=== PATIENT | male | born 1935 | race Caucasian/White ===

== ENCOUNTER 2025-01-31 15:21 | Emergency (ER) | payer OTHER, SELFPAY ==
[2025-01-31 15:29] VITALS: BP 135/75; PULSE 92; RESP 15; TEMP 36.8; O2SAT 97
--- NOTE | 2025-01-31 15:29 | EDNOTE_ITS ---
<Statement entered by Paulina Farris MD - 01/31/25 19:04> As co-signing physician, I was present and available for consult prn. I concur with the plan and care as documented by the midlevel provider. ED General RME/HPI General Chief complaint: Skin/Abscess/Foreign Body Stated complaint: G-TUBE INFECTION Time Seen by Provider: 01/31/25 15:22 Arrival date/time: 01/31/25 15:21 RME / HPI RME / HPI narrative: 89-year-old male patient with significant history of CVA with left-sided weakness was brought in for evaluation regard concern with G-tube infection. Apparently patient family is concerned because the insertion site is slightly red, no fever noted patient is not having any pain no vomiting noted no drainage noted. Related Data Home Medications ?Medication ?Instructions ?Recorded ?Confirmed amlodipine 10 mg tablet (Norvasc) 10 mg feeding tube Q DAY 01/10/19 07/21/21 simvastatin 20 mg tablet 20 mg feeding tube QPM 01/1007/21/21 modafinil 200 mg tablet 200 mg feeding tube QAM 01/3007/21/21 omeprazole 20 mg capsule,delayed 20 mg feeding tube DA JUDIT 02/15/19 07/21/21 release cholecalciferol (vitamin D3) 25 1,000 unit feeding tub e BID 03/23/19 07/21/21 mcg (1,000 unit) tablet cyanocobalamin (vitamin B-12) 100 100 mcg feeding tube BID 03/23/19 07/21/21 mcg tablet acetaminophen 160 mg/5 mL (5 mL) 320 mg feeding tube T ID PRN Pain 02/03/21 07/21/21 oral solution gabapentin 100 mg capsule 100 mg feeding tube QID 07/0307/21/21 Previous Rx's ?Medication ?Instructions ?Recorded ondansetron HCl 4 mg tablet 4 mg PO Q8H PRN nausea and 07/21/21 (Zofran) vomiting #20 tabs ondansetron 4 mg disintegrating 4 mg PO Q6H PRN nausea and 01/28/23 tablet vomiting #30 tabs cephalexin 250 mg/5 mL oral 500 mg (10 mL) PO TID 7 da ys #210 01/31/25 suspension mL Allergies Allergy/AdvReac Type Severity Reaction Status Date / Time No Known Allergies Allergy Verified 01/31/25 16:24 Review of Systems Review of Systems Narrative Review of Systems: Review of system reviewed and within normal limits except mentioned in HPI ED Exam Narrative Physical exam: VITAL SIGNS: Reviewed. GENERAL APPEARANCE: Alert and interactive, follows commands, no acute distress, HEAD AND FACE: Non-traumatic. ENT: PERRL, pink conjunctivitis, eyelid no trauma, Mucous membrane moist. NECK: Supple, nontender, no nuchal rigidity. CHEST: No tenderness, no crepitus, no paradoxical movement, no retractions. LUNGS: Clear, well ventilated, symmetric, no rales, no wheezing, no ronchi, no stridor, good breath sounds bilaterally. HEART: Regular rate, regular rhythm, no murmur, no gallops. ABDOMEN: Soft, positive bowel sounds, nondistended, no guarding, nontender, no rebound, no masses, G-tube intact, slightly red on the insertion site, no drainage noted nontender nonfluctuant RECTAL: Deferred. GENITAL: Deferred. NEUROLOGICAL: Gross motor function intact sensory function intact on the right upper and lower extremity, weakness noted in the left upper and lower extremity, MUSCULOSKELETAL: low back nontender, full range of motion. EXTREMITIES: Nontender, full range of motion right upper and lower extremity SKIN: Color pink, dry, no rash, no lacerations, no abrasions, no contusions. LYMPHATICS: Deferred. Course Quality Measures none Orders Category Date Time Status KUB [XR abdomen 1V] Stat Exams 01/31/25 17:01 Completed CBC [CBC] Stat Lab 01/31/25 16:45 Completed CMP [Comprehensive Metabolic Panel] Stat Lab 01/31/25 17:30 Completed Vital Signs Vital signs: Vital Signs Temperature 98.2 F 01/31/25 15:29 Pulse Rate 92 01/31/25 15:29 Respiratory Rate 15 01/31/25 15:29 Blood Pressure 135/75 H 01/31/25 15:29 Pulse Oximetry (%) 97 01/31/25 15:29 Oxygen Delivery Method Room Air 01/31/25 15:29 Discharge Plan Plan Patient Disposition: HOME (Self Care) Discharge Disposition comment: stable Prescriptions/Referrals Prescriptions/Med Rec: New cephalexin 250 mg/5 mL suspension for reconstitution 500 mg PO TID 7 Days Qty: 210 0RF No Action amlodipine [Norvasc] 10 mg Tablet 10 mg feeding tube QDAY simvastatin 20 mg Tablet 20 mg feeding tube QPM modafinil 200 mg Tablet 200 mg feeding tube QAM omeprazole 20 mg Capsule,Delayed Release(Dr/Ec) 20 mg feeding tube DAILY cyanocobalamin (vitamin B-12) 100 mcg Tablet 100 mcg feeding tube BID cholecalciferol (vitamin D3) 1,000 unit Tablet 1,000 unit feeding tube BID acetaminophen 160 mg/5 mL (5 mL) solution 320 mg feeding tube TID PRN (Reason: Pain) gabapentin 100 mg Capsule 100 mg feeding tube QID ondansetron HCl [Zofran] 4 mg tablet 4 mg PO Q8H PRN (Reason: nausea and vomiting) Qty: 20 0RF ondansetron 4 mg tablet,disintegrating 4 mg PO Q6H PRN (Reason: nausea and vomiting) Qty: 30 1RF Referrals: Hemalatha Echevarria, [employer] [Primary Care Provider] - In 1 week Problem List Clinical Impression: G-tube site cellulitis Patient/Caregiver Discharge Instructions Discharge Activity: activity as tolerated Education Materials: ED Cellulitis Additional Instructions: Thank you for the opportunity for serving you today. You are stable for discharged . You are advised to: Follow-up with your PCP in 1 to 2 days Return to ED for worsening of symptoms Increase oral fluids Take medication as prescribed Okay to use the new G-tube Print Language: Irish Stand Alone Forms: [facility] [employer] Patient Portal Info Letter MDM Narrative MDM hospital course (for use when minimal MDM required): 89-year-old male patient with significant history of CVA with left-sided weakness was brought in for evaluation regard concern with G-tube infection. Apparently patient family is concerned because the insertion site is slightly red, no fever noted patient is not having any pain no vomiting noted no drainage noted. Old G-tube was removed by me, and new G-tube was placed without any difficulty. X-ray of the abdomen using Gastrografin showed G-tube is in satisfactory position, no leaking of dye noted Patient's workup all came back normal Clinical Information Provided by: none Labs Lab(s) Interpretation(s): CBC unremarkable CMP unremarkable x-ray of the abdomen showed G-tube in right position Diagnosis Differential Diagnosis ED Complaint MDM: G-tube site cellulitis, G-tube malfunction Diagnoses ruled out and/or further discussions: G tube site cellulitis, encounter for replacement of G-tube
[2025-01-31 16:09] VITALS: PULSE 80; RESP 18; O2SAT 98
[2025-01-31 16:57] LABS: Basophils # (Auto) 0.1 Thou/mm3 (0.0-0.2); Basophils % (Auto) 1 % (0-2.5); Eosinophils # (Auto) 0.4 Thou/mm3 (0.0-0.5); Eosinophils % (Auto) 3 % (0-10); Hemoglobin 13.2 g/dL (13.5-16.0); Immature Granulocytes % (Auto) 1 % (0-0); Immature Granulocytes Auto 0.06 Thou/mm3 (0.00-0.00); Lymphocytes # (Auto) 2.6 Thou/mm3 (1.0-4.8); Lymphocytes % (Auto) 24 % (10-50); Mean Corpuscular HGB Conc 34.7 g/dl (31.0-37.0); Mean Corpuscular Volume 92 fL (80-100); Monocytes # (Auto) 0.8 Thou/mm3 (0.0-0.8); Monocytes % (Auto) 7 % (0-12); Neutrophils # (Auto) 6.9 Thou/mm3 (1.8-7.7); Neutrophils % (Auto) 64 % (37-80); Nucleated Red Blood Cell % 0 /100 WBC (0); Platelet Count 412 Thou/mm3 (140-440); RDW Standard Deviation 44.8 fL (35.1-43.9); Red Blood Count 4.13 Miln/mm3 (4.50-5.90); White Blood Count 10.7 Thou/mm3 (3.8-10.6)
--- NOTE | 2025-01-31 17:01 | XR_ITS ---
Examination: Abdomen AP single view Technique: AP portable supine abdomen, single view Exam date and time: January 31, 2025 1947 hours INDICATIONS: Unknown position gastrostomy tube FINDINGS: Contrast in the stomach duodenum and small bowel, no abnormal extravasation of contrast noted IMPRESSION: Gastrostomy tube in the body of the stomach satisfactory position
[2025-01-31 18:07] VITALS: BP 134/82; PULSE 97; RESP 23; TEMP 36.4; O2SAT 96
[2025-01-31 18:14] LABS: Alanine Aminotransferase < 7 U/L (10-49); Albumin, Serum 4.1 gm/dL (3.4-4.8); Albumin/Globulin Ratio 1.4 (1.2-2.2); Alkaline Phosphatase 94 U/L (46-116); Anion Gap 10 (7-16); Aspartate Amino Transferase 11 U/L (0-34); BUN/Creatinine Ratio 19 Ratio (12-20); Bilirubin,Total 0.3 mg/dL (0.3-1.2); Blood Urea Nitrogen 19 mg/dL (9-23); Calcium 8.8 mg/dL (8.3-10.6); Calcium (Corrected) 8.8 mg/dL (8.5-10.1); Carbon Dioxide 25.4 mMol/L (20.0-31.0); Chloride 103 mMol/L (98-107); Glucose 149 mg/dL (74-106); Osmolality,Calculated 280 (275-295); Sodium 138 mMol/L (136-145); Total Protein 7.1 gm/dL (5.7-8.2); eGFR > 60 See Note
[2025-01-31 19:07] VITALS: BP 177/102; PULSE 99; RESP 20; TEMP 36.7; O2SAT 100
[2025-01-31 19:32] VITALS: BP 176/86
[2025-01-31 19:55] VITALS: BP 131/92
== END 2025-01-31 19:59 | disposition home or self-care (01) ==
PROVIDERS: Nurse Practitioner Family; Emergency Provider Emergency Medicine; PCP Nurse Practitioner Primary Care
DX: K94.22 Gastrostomy infection (principal); L03.311 Cellulitis of abdominal wall; I69.354 Hemiplegia and hemiparesis following cerebral infarction affecting left non-dominant side
CPT/HCPCS: 36415; 74018; 80053; 81001; 85025; 99283; Q9963